=== PATIENT | female | born 1970 | race Two or more races ===

== ENCOUNTER 2020-01-29 18:07 | Emergency (ER) | payer SELFPAY ==
[~2020-01-29] VITALS: Ht 154.9 cm; Wt 88.0 kg
[2020-01-29] MEDS ORDERED: IV NORMAL SALINE 1000ML BAG 1,000 ML IV SCH (18:50)
--- NOTE | 2020-01-29 18:54 | PHYS DOC ---
Past Medical History Past Medical History: Diabetes-Type II, Hypertension General Adult EDM: Chief Complaint: ABDOMINAL PAIN HPI: HPI: 49-year-old female significant history of hypertension, diabetes mellitus, who presents for evaluation of abdominal pain. The patient reports onset of epigastric and right upper quadrant pain that radiates to the chest, associated with nausea and vomiting that began just prior to arrival. This was associated with diffuse facial tingling as well as left arm tingling. All her symptoms beg an simultaneously after an argument with her son and her son's girlfriend. No prior abdominal surgeries. 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 Review of Systems: Review of Systems: Gen: No fever, chills. Eyes: No blurred vision, diplopia. ENT: No nasal congestion, sore throat. CV: No palpitations. Reports abdominal pain radiating to chest. Resp. No SOB, cough. GI: Reports abd pain, N/V. : No dysuria, hematuria. Neuro: No PALOMINO, dizziness, weakness. Reports tingling. MSK: No myalgia, arthralgia, back pain. Skin: No acute rash or lesion. Heart Score: Risk Factors: Risk Factors: DM, Current or recent (<one month) smoker, HTN, HLP, family history of CAD, obesity. Risk Scores: Score 0 - 3: 2.5% MACE over next 6 weeks - Discharge Home Score 4 - 6: 20.3% MACE over next 6 weeks - Admit for Clinical Observation Score 7 - 10: 72.7% MACE over next 6 weeks - Early Invasive Strategies Physical Exam: PE: Gen: NAD. Well nourished. Head: NC/AT. Eyes: No scleral icterus. No conjunctival injection. PERRL. ENT: MMM. Posterior OP clear. Neck: Supple. NT. CV: RRR. Peripheral pulses intact. Resp: CTAB. Abd: Soft. ND. Right upper quadrant tenderness without rebound, guarding, rigidity. MSK: No peripheral cyanosis. No edema. Neuro: A&Ox3. Strength & sensation grossly intact throughout. No aphasia or dysarthria. No visual field cut. No facial asymmetry. No hemineglect. NIH stroke score 0. Skin. Warm. Dry. Psych: Tearful. EKG: EKG: [] Radiology/Procedures: Radiology/Procedures: ABDOMEN LTD History: Right upper quadrant pain. Comparison: None. Technique: Transabdominal ultrasound images are obtained of the right upper quadrant. Findings: Visualized pancreas is unremarkable. Liver is increased in echogenicity. Right hepatic lobe measures 18.8 cm. Portal flow is hepatopedal. Gallbladder has an unremarkable appearance. Common bile duct measures 4 mm in diameter. The right kidney measures 11.2 x 5.2 x 3.8 cm. No hydronephrosis. Visualized portions of the aorta and IVC have normal caliber. IMPRESSION: 1. Hepatomegaly with increased echotexture, may indicate steatosis. Electronically signed by: Trevin Gardner DO (01/29/2020 7:30 PM) [facility] Course & Med Decision Making: Course & Med Decision Making Pertinent Labs and Imaging studies reviewed. (See chart for details) In summary, 49-year-old female who presents to the evaluation of onset of epigastric and right upper quadrant pain, radiates to the chest associated facial tingling, with symptoms beginning immediately after an argument with her son and her sons girlfriend. No prior abdominal surgeries. Nonfocal right upper quadrant epigastric tenderness on palpation without peritoneal signs. Unremarkable cardiorespiratory examination. Lab work is otherwise unrevealing as well. Troponin negative. Lipase normal. No significant transaminitis. Right upper quadrant ultrasound shows hepatic steatosis, unremarkable gallbladder and right kidney. Suspect a gastric component with some anxiety/panic contributing to her current presentation. I doubt atypical p resentation of ACS, dissection, or PE; or central pathology such as TIA or stroke. She remains well-appearing and nontoxic. She will be discharged home with outpatient PMD follow-up. Empiric prescriptions for pantoprazole 40 mg daily. Return precautions given. Vince Disclaimer: Vince Disclaimer: This electronic medical record was generated, in whole or in part, using a voice recognition dictation system. Departure Departure Impression: Primary Impression: Upper abdominal pain Additional Impression: Tingling Disposition: 01 HOME, SELF-CARE Condition: STABLE Referrals: NO PCP (PCP) Patient Instructions: Abdominal Pain Scripts Ondansetron (ONDANSETRON ODT) 4 Mg Tab.rapdis 1 TAB PO PRN Q6-8HRS, #16 TAB Prov: LE,CANDACE H 01/29/20 Pantoprazole Sodium (PANTOPRAZOLE SODIUM ) 40 Mg Tablet.dr 40 MG PO DAILYAC for GERD, #30 TAB Prov: CANDACE COTTRELL DO 01/29/20 CANDACE COTTRELL DO January 29, 2020 18:54
[2020-01-29] MEDS ORDERED: fentaNYL PF VIAL 100 MCG/2 ML VIAL IV PRN (19:00)
[2020-01-29] MEDS ORDERED: ONDANSETRON PF 4 MG/2 ML VIAL. IVP ONE (19:00)
[2020-01-29 19:20] LABS: BILIRUBIN,URINE NEGATIVE (NEG); CLARITY,URINE CLOUDY; COLOR,URINE YELLOW; NITRITE,URINE NEGATIVE (NEG); PH,URINE 5.5 (<5.0-8.0); PROTEIN,URINE 30 mg/dL (NEG-TRACE)
[2020-01-29 19:27] LABS: BASO % 1 % (0-3); EOS # 0.1 x10^3/uL (0.0-0.7); EOS % 2 % (0-3); HEMATOCRIT 42.3 % (36.0-47.0); HEMOGLOBIN 14.2 g/dL (12.0-15.5); LYMPH # 1.8 x10^3/uL (1.0-4.8); LYMPH % 28 % (24-48); MEAN CORPUSCULAR HEMOGLOBIN 27 pg (25-35); MEAN CORPUSCULAR HGB CONC 34 g/dL (31-37); MEAN CORPUSCULAR VOLUME 82 fL (79-100); MONO # 0.3 x10^3/uL (0.0-1.1); MONO % 5 % (0-9); NEUT # 4.2 x10^3/uL (1.8-7.7); NEUT % 65 % (31-73); PLATELET COUNT 262 x10^3/uL (140-400); RED BLOOD COUNT 5.19 x10^6/uL (3.50-5.40); RED CELL DISTRIBUTION WIDTH 14.8 % (11.5-14.5); WHITE BLOOD COUNT 6.5 x10^3/uL (4.0-11.0)
[2020-01-29 19:28] LABS: BACTERIA,URINE FEW /HPF (0-FEW); RBC,URINE 0 /HPF (0-2); SQUAMOUS EPITHELIAL CELL,UR MANY /LPF; WBC,URINE OCC /HPF (0-4)
--- NOTE | 2020-01-29 19:33 | RAD ---
ABDOMEN LTD History: Right upper quadrant pain. Comparison: None. Technique: Transabdominal ultrasound images are obtained of the right upper quadrant. Findings: Visualized pancreas is unremarkable. Liver is increased in echogenicity. Right hepatic lobe measures 18.8 cm. Portal flow is hepatopedal. Gallbladder has an unremarkable appearance. Common bile duct measures 4 mm in diameter. The right kidney measures 11.2 x 5.2 x 3.8 cm. No hydronephrosis. Visualized portions of the aorta and IVC have normal caliber. IMPRESSION: 1. Hepatomegaly with increased echotexture, may indicate steatosis. Electronically signed by: Trevin Gardner DO (01/29/2020 7:30 PM) [facility]
[2020-01-29 19:42] LABS: PREG TEST PT QUAL NEGATIVE (NEG)
[2020-01-29 19:45] LABS: CALCIUM 8.5 mg/dL (8.5-10.1); CREATININE 0.8 mg/dL (0.6-1.0); GFR 76.9; POTASSIUM 3.5 mmol/L (3.5-5.1)
[2020-01-29 19:59] LABS: ALBUMIN 3.5 g/dL (3.4-5.0); ALBUMIN/GLOBULIN RATIO 0.8 (1.0-1.7); MAGNESIUM 1.8 mg/dL (1.8-2.4); TOTAL BILIRUBIN 0.3 mg/dL (0.2-1.0); TOTAL PROTEIN 7.7 g/dL (6.4-8.2)
[2020-01-29 20:25] VITALS: BP 130/73
[2020-01-29] MEDS ORDERED: PANT40TA77 PO (20:28)
[2020-01-29] MEDS ORDERED: ONDA4TAB12 PO (20:28)
--- NOTE | 2020-01-30 06:41 | EKG ---
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
== END 2020-01-29 20:35 | disposition home or self-care (01) ==
LOC: ER 18:07
DX: R10.11 Right upper quadrant pain (principal); R11.2 Nausea with vomiting, unspecified; R20.2 Paresthesia of skin; E11.9 Type 2 diabetes mellitus without complications; I10 Essential (primary) hypertension
CPT/HCPCS: 36415; 76705; 80053; 81001; 81025; 83690; 83735; 84484; 84703; 85025; 93005; 96361; 96374; 96375; 99285; J2405; J3010; J7030